=== PATIENT | female | born 1950 | race Caucasian/White ===

== ENCOUNTER 2016-08-21 05:56 | Inpatient (IN) | payer MEDICARE, OTHER ==
[~2016-08-21] VITALS: Ht 157.5 cm; Wt 61.7 kg
[2016-08-21] VITALS (20 sets, daily range): BP systolic 93–175; BP diastolic 52–102; PULSE 72–102; RESP 14–21; O2SAT 94–99
[~2016-08-21 05:56] MED LIST: ALBU5SOL4 IN; ALBU8.5H4 IH; CLOP75TA28 PO; FLUT12AE10 IH; INSU100C11 SUBQ; INSU100V7 SUBQ; LISI-567 PO; METF10002 PO; METO50TA3 PO; OMEG-38 PO; ROSU40TA PO; SALM50DI IH
[2016-08-21] MEDS ORDERED: Nitroglycerin 50,000 mcg/250 mL D5W Premix IV ONE ×2 (06:14→06:32)
[2016-08-21] MEDS ORDERED: MeTOProlol 1 mg/mL 5 mL Inj ONE (06:15)
[2016-08-21] MEDS ORDERED: Ondansetron 2 mg/mL 2 mL Inj ONE ×2 (06:15→06:56)
[2016-08-21] MEDS ORDERED: Nitroglycerin 2% 1 Gm Ointment TOPICAL ONE (06:15)
[2016-08-21] MEDS ORDERED: Heparin 5,000 Unit/mL Inj ONE (06:16)
--- NOTE | 2016-08-21 06:18 | ED.REPORT ---
HPI-Chest Pain 40 and Over Date of Service Aug 21, 2016 ED Provider: Lenny Lomeli MD Pt is a 65 year old female with a hx of DM and stents presenting to the ED complaining of 10/10 chest pain/pressure onset this morning around 0400. Denies nausea, SOB, diaphoresis, dysuria or bleeding. Denies previous similar symptoms. The pain is across the chest and radiates into the arms and is exacerbated by inspiration and relieved by sitting up. Pt takes Plavix, Metformin, Lisinopril, cholesterol medication, and Aspirin but has not taken any medications today. Nursing Notes Stated Complaint: CHEST PAIN Chief Complaint: Chest Pain Nursing Notes Reviewed: Yes ([employer] not reconciled) Allergies: Coded Allergies: No Known Allergies (Verified , 08/21/16) Scheduled Clopidogrel (Clopidogrel) 75 Mg Tablet 75 MG PO DAILY Fluticasone Propionate (Flovent HFA 220 mcg) 12 Gm Aer.w.adap 2 PUFFS IH BID Insulin Glargine (Lantus U100 Insulin Vial) 100 Unit/Ml Vial 120 UNIT SUBQ QPM- INSULIN Insulin Lispro (HumaLOG U100 Insulin Cartridge Refill) 100 Unit/1 Ml Cartridge 20-30 UNIT SUBQ TID-INSULIN Blood Sugar Lispro Correction <151 0 units 151-175 1 unit 176-200 2 units 201-225 3 units 226-250 4 units 251-275 5 units 276-300 6 units 301-325 7 units 326-350 8 units 351-375 9 units 376-400 10 units >400 12 units Check blood sugars before meals and at bedtime. Use correction factor only before meals. Lisinopril (Lisinopril) 20 Mg Tablet 20 MG PO BID Metformin (Metformin) 1,000 Mg Tablet 1,000 MG PO BIDWM Metoprolol Tartrate (Metoprolol Tartrate) 50 Mg Tablet 50 MG PO BID [place]-3/Dha/Epa/Fish Oil (Fish Oil 1,000 mg Softgel) 1 Each Capsule 2 CAP PO DAILY Rosuvastatin Calcium (Crestor) 40 Mg Tablet 40 MG PO HS Salmeterol Xinafoate (Serevent Diskus) 50 Mcg/Puff Inhaler 1 PUFF IH BID Scheduled PRN Albuterol HFA (Albuterol HFA) 8.5 Gm Hfa.aer.ad 2 PUFFS IH Q4 PRN PRN For Wheezing Albuterol Sulfate (Albuterol 5% Inh Soln) 5 Mg/1 Ml Solution 2.5 MG IN Q4 PRN PRN For Wheezing Mix in nebulizer reservoir with sodium chloride nebulizer solution. General Time Seen by MD: 06:05 Chief Complaint Chest pain Hx Obtained From: Patient Arrived By: Walk-in Sudden in Onset?: Yes Onset Occurred: 1 - 4 hours ago Symptom Duration: Since onset Location: : Chest left: Chest right Quality: Painful, Pressure Radiation: : Arm left: Arm right Severity: Current: Pain level 10 out of 10 Severity: Maximum: Severe Recent Healthcare: No recent doctor visit, No recent hospitalization Similar Sx Previous: No Risk Factors )( CAD Risk Stratification Diabetes mellitus Hyperlipidemia Known CAD Risk factors reviewed Past Medical History Past Medical History Notes: Last Admit - Chest pain March 2012, myocardial perfusion scan negative Past Medical History IDDM (adult onset), poorly controlled. 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 Female: Denies: Dysuria, Vaginal bleeding - abnl Physical Exam Initial Vital Signs Vital Signs (First) Date Time Temp Pulse Resp B/P Pulse Ox O2 Delivery O2 Flow Rate FiO2 08/21/16 06:00 36.5 80 18 175/92 94 Room Air Initial VS: Reviewed, Vital signs normal (moderate HYN) Head / Eyes: Atraumatic, Normocephalic, PERRL ENT: Mucous membranes moist, Conjunctiva normal, No scleral icterus Extremities: Vascular intact, Neuro intact, No swelling, No tenderness Skin: Warm, Dry, No cyanosis Neurologic: Alert, Oriented, Nonfocal Psychiatric: Mood/affect normal, Behavior normal, Normal thought content General/Constitutional: Awake, Alert Appearance / Presentation: Positive: Uncomfortable Clutching chest in severe discomfort. Not diaphoretic. Kind of thin and mildly cachectic. Respiratory / Chest: Atraumatic, Breath sounds NL, Breath sounds = bilat, No respiratory distress Not tachypnic. Cardiovascular: Regular rhythm, No murmurs Hypertensive. Abdomen: Soft, Non-tender, No guarding, No rebound, No distention Neck: No JVD Lower Extremity / Pelvis / MS: No edema Interpretation & Diagnostics Lab Results Interpretation Result Diagram: 08/21/16 0641 08/21/16 0641 Test 08/21/16 06:41 White Blood Count 8.6th/mm3 (3.8-10.1) Red Blood Count 4.87mil/mm3 (3.90-5.20) Hemoglobin 14.0g/dL (12.0-15.6) Hematocrit 40.6% (35.0-46.0) Mean Corpuscular Volume 83.4fL (81-100) Mean Corpuscular Hemoglobin 28.7pg (27.0-35.0) Mean Corpuscular Hemoglobin Concent 34.5% (32.0-37.0) Red Cell Distribution Width 13.9% (12.3-15.4) Platelet Count 200bil/L (150-400) Neutrophils (%) (Auto) 55.4% (40-74) Lymphocytes (%) (Auto) 32.5% (14-46) Monocytes (%) (Auto) 9.8% (4-12) Eosinophils (%) (Auto) 1.4% (0-5) Basophils (%) (Auto) 0.2% (0-3) Sodium Level 133mEq/L (134-144) Potassium Level 4.5mEq/L (3.5-5.2) Chloride Level 94mEq/L (97-108) Carbon Dioxide Level 23mmol/L (18-29) Blood Urea Nitrogen 22mg/dL (8-27) Creatinine 0.57mg/dL (0.57-1.00) Estimat Glomerular Filtration Rate 152mL/min (>59) Glucose Level 557mg/dL (60-99) Calcium Level 9.6mg/dL (8.5-10.1) Magnesium Level 2.0mg/dL (1.6-2.6) Total Bilirubin 0.4mg/dL (0.0-1.2) Aspartate Amino Transf (AST/SGOT) 19U/L (0-50) Alanine Aminotransferase (ALT/SGPT) 25U/L (0-32) Alkaline Phosphatase 178U/L (25-165) Troponin T 0.013ug/L (0.0-0.011) Total Protein 8.0g/dL (6.4-8.4) Albumin 3.9g/dL (3.4-5.0) Lab Results Interpretation: CBC normal CMP notable for hyperglycemia Troponin #1 marginally elevated ECG Interpretation ECG Interpretation: NSR @71, ST segment elevation inferiorly, reciprocal changes anteriorly consistent with inferior ST segment elevation GA, EKG changes are new compared with old EKG March 2012 Time: 06:12 Interpreted by: ED physician Abnormal T wave or ST segment: STEMI X-Ray Chest Interpretation Chest Xray Interpretation: No acute disease per my interpretation View: Portable Interpretation / Wet Read by: Wet read ED physician Re-Eval/Medical Decision Med Decision/Clinical Course This is a 65-year-old female with diabetes, high blood pressure, previous history of coronary disease and stenting in 2009 of the LAD who reports developing substernal chest discomfort with radiation of the right arm at approximately 4 AM this morning. She reports 10 out of 10 pressure-like discomfort. She denies diaphoresis nausea or vomiting, but has persistent symptoms. She is on aspirin and Plavix, but has not yet had either today. Her reports she continues to abstain from smoking. sHe arrives still having 10 out of 10 chest discomfort. She is hypertensive, and is clutching her chest and appears in severe discomfort. But otherwise she has a normal physical exam, no overt stigmata of heart failure. She has no JVD, no rails, no murmurs, no leg edema. She has no risk factors for to suggest pulmonary embolism. She has no contraindications to anticoagulation. Her EKG demonstrates an inferior ST segment elevation GA, new compared with previous EKG dated March 2012. The STEMI process was activated, and the case discussed with the design consultant Dr. Vazquez. Patient received aspirin, 600 mg of Plavix, morphine, heparin, a single dose of 25 mg by mouth metoprolol, and is improved on reevaluation. She is being taken to the Mobile Sales Assistant for further management The patient's glucose returned elevated while the patient was in the quality assurance/r&d lab technician and I called results over to them. Source of Hx: Old records Time of Eval: 06:22 Patient Status: Condition improved Re-Evaluation/Progress Note: Discussed plan for admission and consultation with Dr. Vazquez. Pt understands and agrees. Time of Eval: 06:40 Patient Status: Condition improved Re-Evaluation/Progress Note: Pt pain not decreased yet. BP 160/69. Time of Eval: 06:54 Patient Status: Condition improved Re-Evaluation/Progress Note: Pt being taken to quality assurance/r&d lab technician. Consultation : Referral / Consult Name: Panda Vazquez MD Consulted With: Cardiology Call Returned at: 06:17 Youth Care Professional: Will see patient Note: Requested quality assurance/r&d lab technician. Differential Diagnosis: Positive: Acute coronary syndrome, Acute myocardial infarct, Myocardial infarction, Negative: Gun shot wound chest, Pneumonia, Pneumothorax, Pulmonary edema, Pulmonary embolism, Stab wound chest Counseled Regarding: Diagnosis, Lab results, Need for follow-up, When/why to return to ED Discharge & Departure Primary Impression: STEMI (ST elevation myocardial infarction) Involved coronary artery: unspecified coronary artery Qualified Code: I21.3 - ST elevation (STEMI) myocardial infarction of unspecified site Additional Impression: Hyperglycemia Disposition: ADMITTED TO HOSPITAL Discharge Condition All VS Reviewed: Yes Condition: Improved Referrals: Ga Sullivan MD (PCP) Crit Care Except Billable Proc Time Spent: 30-74 minutes Services Performed: Patient management by me, Time spent at bedside, Reviewing test results, Reviewing imaging, Discussing patient care, Documentation in record Scribe Attestation Portions of this note were transcribed by Melissa Santoyo. I, Dr. Lomeli personally performed the history, physical exam and medical decision-making; I reviewed and confirmed the accuracy of the information in the transcribed note. Signed by: Parker Mcclure, 08/21/2016 at 0730. copies to: Ga Sullivan MD, Matthew F MD Aug 21, 2016 06:18 MELISSA SANTOYO Aug 21, 2016 06:23
[2016-08-21] MEDS ORDERED: Heparin 5,000 Unit/mL Inj IVPUSH ONE (06:20)
[2016-08-21] MEDS ORDERED: Heparin 25K Unit/500mL 0.45 NS 25,000 UNIT in IV Premix 1 EACH IV ONE (06:20)
[2016-08-21] MEDS ORDERED: Heparin 1,000 Units/500 mL NS Premix IV ONE (06:32)
[2016-08-21] MEDS ORDERED: Atropine 1 mg/10 mL (Code) Syringe ONE (06:32)
[2016-08-21] MEDS ORDERED: 0.9% Sodium Chloride 1,000 ML ONE (06:32)
[2016-08-21] MEDS ORDERED: Heparin 1,000 Unit/mL 10 mL Inj ONE ×2 (06:32→07:37)
[2016-08-21] MEDS ORDERED: Heparin 10,000 Unit/1,000 mL NS Premix IV ONE (06:33)
[2016-08-21] MEDS ORDERED: NitroPRUSSIDE 25,000 mCg/mL 2 mL Inj IV ONE (06:39)
[2016-08-21] MEDS ORDERED: 0.9% Sodium Chloride 250 ML ONE (06:39)
[2016-08-21 06:47] LABS: BASOPHILS % (AUTO) 0.2 % (0-3); EOSINOPHILS % (AUTO) 1.4 % (0-5); MONOCYTES % (AUTO) 9.8 % (4-12); Mean Corpuscular Hemoglobin 28.7 pg (27.0-35.0); Mean Corpuscular Volume 83.4 fL (81-100); NEUTROPHILS % (AUTO) 55.4 % (40-74); Platelet Count 200 bil/L (150-400)
[2016-08-21 07:08] LABS: TROPONIN T 0.013 ug/L (0.0-0.011)
[2016-08-21] MEDS ORDERED: fentaNYL-PF 50 mCg/mL 2 mL Inj ONE (07:23)
[2016-08-21] MEDS ORDERED: Senna-Docusate 8.6-50 mg Tablet PO PRN (09:10)
[2016-08-21] MEDS ORDERED: Alum-Mag Hydrox-Simeth 30 mL Suspension PO PRN (09:10)
[2016-08-21] MEDS ORDERED: Polyethylene Glycol (PEG) 17 Gm Powder PO PRN (09:10)
[2016-08-21] MEDS ORDERED: Ondansetron 2 mg/mL 2 mL Inj IVPUSH PRN (09:10)
[2016-08-21] MEDS ORDERED: Albuterol HFA 60 Puff 8 Gm Inhaler INHALATION PRN (09:20)
--- NOTE | 2016-08-21 09:22 | DRSVH ---
PROCEDURE: X-RAY CHEST ONE VIEW, PORTABLE ([id number]) INDICATIONS: CP TECHNIQUE: One view of the chest was acquired. COMPARISON: [facility], , CHEST 1VW (PORTABLE), 04/13/2012, 12:38. FINDINGS: Surgical changes and devices: None. Lungs and pleura: No pleural effusions or pneumothorax. Lungs are clear. Mediastinum: Mediastinal contours appear normal. Heart size is normal. Bones and chest wall: No suspicious bony lesions. Overlying soft tissues appear unremarkable. IMPRESSION: No acute cardiopulmonary disease. Dictated by: Dank TIDWELL Interpreted: Nikko Ramirez MD on 08/21/2016 at 9:21 Transcribed by: HERNANDO on 08/21/2016 at 9:21 Approved by: Nikko Ramirez M.D. on 08/21/2016 at 9:48
[2016-08-21] MEDS ORDERED: Albuterol 2.5 mg/3 mL Inhalation Solution NEB PRN (09:35)
--- NOTE | 2016-08-21 10:00 | PCM.CHPCAR ---
Consult Subjective Date of service Aug 21, 2016 Date of admit Aug 21, 2016 at 06:56 Provider Requesting Consult Requesting Provider: Lenny Lomeli MD Primary Care Physician Primary Care Physician: Ga Sullivan MD Chief Complaint Chest pain History of Present Illness This is a 65-year-old female with history of diabetes and multiple stents with history of multiple myocardial infarctions. The patient started having significant and typical chest pressure was 10 out of 10 earlier this morning around 4:00. She denied any nausea, shortness of breath, PND, or orthopnea. The pain radiated to both of her arms and was exacerbated by inspiration and relieved by sitting up. EKG showed inferior STEMI and the patient was taken to the catheterization laboratory immediately and was found to have significant left main disease and diffuse in-stent restenosis of her LAD stents. Her distal RCA was totally occluded. Balloon angioplasty was performed without stenting in case the patient was considered to be a candidate for coronary artery bypass grafting because of her left main disease. She is resting comfortably in CCU at this time. She denies any chest pain. Dr. Vazquez performed heart catheterization and is discussing with the on-call cardiothoracic surgeon at [facility]. The patient's past history of CA in March 2007 and September 2009 was treated by angioplasty and stenting of the LAD. As mentioned she has had multiple stents with pretty much stents throughout her proximal mid LAD. Patient has a history of drug addiction but no use since 1989. History depression, asthma, smoking. Review of Systems Review of Systems Otherwise the rest of the 12 point review of symptoms is negative. PMH Past Medical History IDDM (adult onset), poorly controlled. neuropathy Heart disease (CA in 2007, 2009) Asthma (Intubations x2 for asthma) Coronary artery disease Bedside Blood Glucose: 494 Scheduled Clopidogrel (Clopidogrel) 75 Mg Tablet 75 MG PO DAILY (Reported) Fluticasone Propionate (Flovent HFA 220 mcg) 12 Gm Aer.w.adap 2 PUFFS IH BID ( Reported) Insulin Glargine (Lantus U100 Insulin Vial) 100 Unit/Ml Vial 120 UNIT SUBQ QPM- INSULIN (Reported) Insulin Lispro (HumaLOG U100 Insulin Cartridge Refill) 100 Unit/1 Ml Cartridge 20-30 UNIT SUBQ TID-INSULIN (Reported) Blood Sugar Lispro Correction <151 0 units 151-175 1 unit 176-200 2 units 201-225 3 units 226-250 4 units 251-275 5 units 276-300 6 units 301-325 7 units 326-350 8 units 351-375 9 units 376-400 10 units >400 12 units Check blood sugars before meals and at bedtime. Use correction factor only before meals. Lisinopril (Lisinopril) 20 Mg Tablet 20 MG PO BID (Reported) Metformin (Metformin) 1,000 Mg Tablet 1,000 MG PO BIDWM (Reported) Metoprolol Tartrate (Metoprolol Tartrate) 50 Mg Tablet 50 MG PO BID (Reported) Oliver-3/Dha/Epa/Fish Oil (Fish Oil 1,000 mg Softgel) 1 Each Capsule 2 CAP PO DAILY (Reported) Rosuvastatin Calcium (Crestor) 40 Mg Tablet 40 MG PO HS (Reported) Salmeterol Xinafoate (Serevent Diskus) 50 Mcg/Puff Inhaler 1 PUFF IH BID ( Reported) Scheduled PRN Albuterol HFA (Albuterol HFA) 8.5 Gm Hfa.aer.ad 2 PUFFS IH Q4 PRN PRN For Wheezing (Reported) Albuterol Sulfate (Albuterol 5% Inh Soln) 5 Mg/1 Ml Solution 2.5 MG IN Q4 PRN PRN For Wheezing (Reported) Mix in nebulizer reservoir with sodium chloride nebulizer solution. Current Inpatient Medications Current Medications Morphine Sulfate UP TO 10 mg IV in a 4 h... Q15MIN PRN IVPUSH Last administered on 08/21/16t 06:29; Admin Dose 4 MG; Start 08/21/16 at 06:20; Stop at 06:21 Ondansetron HCl 4 to 8 mg Q4H PRN IVPUSH; Start 08/21/16 at 09:10 Acetaminophen 975 mg Q6H PRN PO; Start 08/21/16 at 09:10 Senna 2 tablet BID PRN PO; Start 08/21/16 at 09:10 Al Hydrox/Mg Hydrox/Simethicone 30 ml Q6 PRN PO; Start 08/21/16 at 09:10 Polyethylene Glycol 17 gm DAILY PRN PO; Start 08/21/16 at 09:10 Enoxaparin Sodium 40 mg DAILY SUBQ; Start 08/22/16 at 08:30 Albuterol 1 puff Q4 PRN INHALATION; Start 08/21/16 at 09:20; Status UNV Clopidogrel Bisulfate 75 mg DAILY PO; Start 08/22/16 at 08:30 Lisinopril 20 mg BID PO; Start 08/21/16 at 20:30 Metoprolol Tartrate 50 mg BID PO; Start 08/21/16 at 09:20 Salmeterol Xinafoate 1 puff BID INHALATION; Start 08/21/16 at 20:30 Fluticasone Propionate 2 puff BID INHALATION; Start 08/21/16 at 20:30 Rosuvastatin Calcium 40 mg HS PO; Start 08/21/16 at 21:00 Insulin Human Regular * Medium Dose Insu... Q6 SUBQ; Start 08/21/16 at 14:30 Albuterol 2.5 mg Q4H PRN NEB; Start 08/21/16 at 09:35 Allergies: Coded Allergies: No Known Allergies (Verified , 08/21/16) Family History Family History Family history of myocardial infarctions. Social History Hx Alcohol Use: NoHx Substance Use: NoHx Tobacco Use: Yes Smoking Status: Former Smoker Exam Vital Signs Vital Sign - Last Date Time Temp Pulse Resp B/P Pulse Ox O2 Delivery O2 Flow Rate FiO2 08/21/16 09:15 85 17 143/78 08/21/16 08:28 37.1 99 Nasal Cannula 2.00 General: Pleasant Cooperative Skin: Warm & dry to touch Head: Normocephalic Eye: EOMS intact Chest: Clear auscultation w/o rales/wheeze Cardiac: Normal non-displaced apical impulse Regular rhythm Pulses: Pulses full/equal all extremities Abdomen: Soft, non-distended, non-tender Extremities: Warm w/o deformities,erythema noted Neurological: Alert & oriented No gross motor or sensory deficits Psychological: Affect & interaction appropriate Lab and Diagnostics Labs CBC Test 08/21/16 06:41 White Blood Count 8.6th/mm3 (3.8-10.1) Red Blood Count 4.87mil/mm3 (3.90-5.20) Hemoglobin 14.0g/dL (12.0-15.6) Hematocrit 40.6% (35.0-46.0) Mean Corpuscular Volume 83.4fL (81-100) Mean Corpuscular Hemoglobin 28.7pg (27.0-35.0) Mean Corpuscular Hemoglobin Concent 34.5% (32.0-37.0) Red Cell Distribution Width 13.9% (12.3-15.4) Platelet Count 200bil/L (150-400) Neutrophils (%) (Auto) 55.4% (40-74) Lymphocytes (%) (Auto) 32.5% (14-46) Monocytes (%) (Auto) 9.8% (4-12) Eosinophils (%) (Auto) 1.4% (0-5) Basophils (%) (Auto) 0.2% (0-3) CMP Test 08/21/16 06:41 Sodium Level 133mEq/L Potassium Level 4.5mEq/L Chloride Level 94mEq/L Carbon Dioxide Level 23mmol/L Blood Urea Nitrogen 22mg/dL Creatinine 0.57mg/dL Estimat Glomerular Filtration Rate 152mL/min Glucose Level 557mg/dL Calcium Level 9.6mg/dL Magnesium Level 2.0mg/dL Total Bilirubin 0.4mg/dL Aspartate Amino Transf (AST/SGOT) 19U/L Alanine Aminotransferase (ALT/SGPT) 25U/L Alkaline Phosphatase 178U/L Troponin T 0.013ug/L Total Protein 8.0g/dL Albumin 3.9g/dL Result Diagram: 08/21/1664008/21/1641 Assessment & Plan Problems: (1) STEMI (ST elevation myocardial infarction) Qualifiers: Involved coronary artery: unspecified coronary artery Qualified Code: I21.3 - ST elevation (STEMI) myocardial infarction of unspecified site Plan: Inferior STEMI. Plain balloon angioplasty was performed without stenting. Currently Dr. Vazquez our on-call interventionalist is currently discussing with the on-call cardiothoracic surgeon to see if she has a candidate for bypass surgery. She has diffuse disease within multiple stents in the LAD and the only target site that I see would be the very distal LAD. The diagonal is also bypassable as well as a small marginal artery and the distal RCA. The only other option is to consider left main stenting which is unprotected. Dr. Vazquez will let us know soon as possible if and when the patient will proceed with coronary stenting versus coronary artery bypass grafting. After she is completed her post cath recovery, then we will start her back on intravenous heparin. I have ordered clopidogrel for tomorrow but we may consider holding this depending on the decision for coronary intervention. Status: Acute ICD Code: I21.3 (2) Hyperglycemia Plan: I started the patient on moderate insulin protocol. Status: Acute ICD Code: R73.9 (3) Diabetes Qualifiers: Diabetes mellitus type: type 2 Diabetes mellitus complication status: with neurologic complications Diabetes mellitus complication detail: with polyneuropathy Diabetes mellitus intermodal customer service insulin use: with intermodal customer service use Qualified Code: E11.42 - Type 2 diabetes mellitus with diabetic polyneuropathy Status: Chronic ICD Code: E11.9 Resuscitation Status: CPR: Attempt Resuscitation Time spent 60 minutes Kenneth Herrera MD Aug 21, 2016 10:00
[2016-08-21] MEDS ORDERED: Insulin Human REGular Inj 100 UNIT in 0.9% Sodium Chloride-Pha MIX 100 ML IV SCH (10:12)
--- NOTE | 2016-08-21 10:37 | PCM.HPMED ---
Subjective Date of Service Aug 21, 2016 Primary Provider: Admitting Physician: Panda Vazquez MD Primary Care Physician: Ga Sullivan MD Attending Physician: Panda Vazquez MD Chief Complaint: Chest pain Allergies Coded Allergies: No Known Allergies (Verified , 08/21/16) PMH Social History Hx Alcohol Use: No Hx Substance Use: No Hx Tobacco Use: Yes Smoking Status: Former Smoker Exam Vital Signs Vital Sign - Last Date Time Temp Pulse Resp B/P Pulse Ox O2 Delivery O2 Flow Rate FiO2 08/21/16 09:15 85 17 143/78 08/21/16 08:28 37.1 99 Nasal Cannula 2.00 Lab and Diagnostics Result Diagram: 08/21/16 0641 08/21/16 0641 Assessment & Plan Diabetes type 2; present o admission; ongoing -Diabetic for 8 year on Metformin and 40 units Humulin N BID; normal BG < 180 -Current BG > 550 -Starting patient on Insulin drip -Once BG < 180 will switch to Lantus 40mg HS and low correctional -NPO due to possible transfer for CABG; will follow-up with cardio Inferior STEMI; present on admission; ongoing -Presented with substernal typical CP with cath identifying complete occlusion of the RCA and near occlusive of the LAD among others; No stents placed -Angioplasty performed and currently Dr. Vazquez is discussing transfer for CABG -Continue ASA/Plavix/Nirto as previously ordered -Continue atorvastatin Resuscitation Status: CPR: Attempt Resuscitation Mio Stein DO Aug 21, 2016 10:37 Assessment & Plan Diabetes type 2; present o admission; ongoing -Diabetic for 8 year on Metformin and 40 units Humulin N BID; normal BG < 180 -Current BG > 550 -Starting patient on Insulin drip -Once BG < 180 will switch to Lantus 40mg HS and low correctional -NPO due to possible transfer for CABG; will follow-up with cardio Inferior STEMI; present on admission; ongoing -Presented with substernal typical CP with cath identifying complete occlusion of the RCA and near occlusive of the LAD among others; No stents placed -Angioplasty performed and currently Dr. Vazquez is discussing transfer for CABG -Continue ASA/Plavix/Nirto as previously ordered -Continue atorvastatin Resuscitation Status: CPR: Attempt Resuscitation Mio Stein DO Aug 21, 2016 10:37
--- NOTE | 2016-08-21 10:50 | PCM.HPMED ---
Subjective Date of Service Aug 21, 2016 Primary Provider: Admitting Physician: Panda Vazquez MD Primary Care Physician: Ga Sullivan MD Attending Physician: Panda Vazquez MD Chief Complaint: Chest pain History of Present Illness: From Dr. Herrera's consult/admit note: 65 year old female with hx of DM2 on insulin and metformin and hx of [place] with multiple stent placed in 2009 who presented to the ED with 10/10, radiating, substernal chest pressure with difficulty breathing that began at 0400 this morning after patient woke up to prepare for her day. The pain radiated to both her extremities and to the back. Patient endorses lethargy and cloudy mentation but otherwise denies SOB, nausea, vomiting, or tearing chest pain. She was brought to the ED by EMS where inferior STEMI was identified and patient was taken to the refuse laborer with Dr. Vazquez. As reported by DrMarci On evaluation the patient had re-stenosis of her previous LAD stent with significant left main disease, as well as total occlusion of her distal RCA. Balloon angioplasty was performed and WITHOUT STENTING. Dr. Vazquez is disucsisng transfer to [place] for recommended CABG. Pt's diabetes was diagnosed 8 years ago and is currently on Metformin and Humulin N 40 units BID. Patient states her BG is usually around 150-180. Pt has not eaten today. Blood glucose this morning is > 550. There are significant differences between her home med list we have here and what she states she takes. Review of Systems: Complete review of systems performed; pertinent positives and negatives per HPI ; all other systems reviewed and are negative. Allergies Coded Allergies: No Known Allergies (Verified , 08/21/16) Home Medications Rosuvastatin 40mg daily Humulin N 40units BID Metformin 1000mg daily Metoprolol tartrate 50mg BID Salmeterol 50mcg/puff; 1 puff BID Stopped taking Plavix 3 weeks ago PMH IDDM (adult onset), poorly controlled. neuropathy Heart disease ([place] in 2007, 2009) Asthma (Intubations x2 for asthma) Coronary artery disease Surgical History Multiple stents placed Family History Mother of heart disease Father of skin cancer Social History Hx Alcohol Use: No Hx Substance Use: No Hx Tobacco Use: Yes Smoking Status: Former Smoker Exam Vital Signs Vital Sign - Last Date Time Temp Pulse Resp B/P Pulse Ox O2 Delivery O2 Flow Rate FiO2 08/21/16 09:15 85 17 143/78 08/21/16 08:28 37.1 99 Nasal Cannula 2.00 Exam gen: AOx3; NAD; laying flat HEENT: PERRLA, EOMI, membranes moist Cardio: RRR Resp: CTA with crackles (difficult to auscultate due to patient needing to remain flat) Abd: Benign; +bs; non-tender; incision site clean and bandages dry Ext: no edema; pulses intact psych: appropriate mood and affect neuro: sensation intact grossly Lab and Diagnostics Result Diagram: 08/21/1664008/21/16640 X-Rays, CTs and MRIs CXR IMPRESSION: No acute cardiopulmonary disease. Dictated by: Dank TIDWELL Interpreted: Nikko Ramirez MD on 08/21/2016 at 9: 21 Assessment & Plan 65 year old female with hx of [place] and DM2 on insulin presented ot ED with substernal CP and inferior STEMI with significant and advance CAD on catheterization. Per Dr. Herrera's note, Dr. Vazquez is working on transfer for CABG. Diabetes type 2; present o admission; ongoing -Diabetic for 8 year on Metformin and 40 units Humulin N BID; normal BG < 180 -Current BG > 550 -Starting patient on Insulin drip -Once BG < 180 will switch to Lantus 40mg HS and low correctional -NPO due to possible transfer for CABG; will follow-up with cardio Inferior STEMI; present on admission; ongoing -Presented with substernal typical CP with cath identifying complete occlusion of the RCA and near occlusive of the LAD among others; No stents placed -Angioplasty performed and currently Dr. Vazquez is discussing transfer for CABG -Continue ASA/Plavix/Nirto as previously ordered -Continue Rosuvastatin Asthma, chronic; present on admission; ongoing -Home inhalers continued by cardiology -Can continue home fluticasone Neuropathy; present on admisison, ongoing -No complaint of neuropathy at this point Disposition: Pt admitted to ICU following PCI with balloon angioplasty. Expected LOS is likely greater than 2 midnights pending transfer for recommended for CABG. Pain Evaluation: Adequate Pain Control Resuscitation Status: CPR: Attempt Resuscitation Time spent 60 minutes Attending Statement The patient was seen and examined together with Dr. Stein on 08/21/16 and I have added additional information to the note above. Mio Stein DO Aug 21, 2016 10:50 Debbi Hurt Aug 21, 2016 18:12
--- NOTE | 2016-08-21 11:09 | PCM.ADCARE ---
Mio Stein DO 08/21/16 1109: Advance Care Planning Note Purpose of Encounter: Establish patient wishes for end of life care Parties in Attendance: Patient Dr Mio Hurt Decisional Capacity: Able to make her own decisions Subjective: 65 year old female with history of multiple NM's and DM2, as well as asthma who underwent additional coronary intervention this AM. 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 She states that her ventilator preference is < 5 days if she is not recovering. Her son Ga ( ) in [place] is her DPOA. Objective: Exam was unremarkable Goals of Care Determinations: Full code; no prolonged mechanical measures Plan: Patient will be full code. CODE STATUS: Full code Time Spent Adv.Care Planning: Greater than 16 minutes Adv. Care Plan Documenation: No POLST was signed. Pt verbally explained her wishes to both Dr. Stein and Debbi Yang DO 08/21/16 1552: Advance Care Planning Note Objective: Diagnosis: Diabetes Multiple NM's CAD Adv. Care Plan Documenation: The patient was seen and examined together with Dr. Stein on 08/21/16 and I have added additional information to the note above. Mio Stein DO Aug 21, 2016 11:09 Debbi Hurt DO Aug 21, 2016 15:52
--- NOTE | 2016-08-21 13:17 | DRSVH ---
[facility] [address] [place] [address] Echocardiogram Report Name: CINDI SLAUGHTER LStudy Date: 08/21/2016 Height: 62 in Hospital Exam Location: [facility] Weight: 129 lb Gender: Other BSA: 1.6 m2 : 1950 Age: 65 yrs BP: 143/78 mmHg Reason For Study: INFERIOR STEMI Ordering Physician: Performed By: Fidel Gomez Interpretation Summary There is moderate concentric left ventricular hypertrophy. Left ventricular systolic function is normal. The ejection fraction is estimated to be 60-65%. LVEF has slightly There is basal inferoseptal wall hypokinesis. There is basal inferior wall hypokinesis. LV wall motion abnormalities are new since 2010 study. The right ventricle is normal in size and function. Pulmonary artery pressures cannot be estimated because of the lack of a measurable TR jet velocity. Both atria are normal in size. There is mild mitral regurgitation. There is no other significant valvular heart disease. The aortic root is normal size. Procedure: A two-dimensional transthoracic echocardiogram with color flow and Doppler was performed. The study quality was technically adequate. Comparison is made with the echocardiogram of 09/14/09. The patient was in normal sinus rhythm during the exam. Left Ventricle: The left ventricle is normal in size. There is moderate concentric left ventricular hypertrophy. Left ventricular systolic function is normal. The ejection fraction is estimated to be 60-65%. There is basal inferoseptal wall hypokinesis. There is basal inferior wall hypokinesis. Right Ventricle: The right ventricle is normal in size and function. Atria: Both atria are normal in size. The interatrial septum is intact with no evidence for an atrial septal defect. Mitral Valve: There is mild mitral annular calcification. There is mild mitral regurgitation. Aortic Valve: The aortic valve is trileaflet. The aortic valve is slightly calcified. The aortic valve opens well. No aortic regurgitation is present. Tricuspid Valve: The tricuspid valve is normal in structure and function. There is a trace or physiologic amount of tricuspid regurgitation. Pulmonary artery pressures cannot be estimated because of the lack of a measurable TR jet velocity. Pulmonic Valve: The pulmonic valve is not well visualized. There is trace pulmonic regurgitation. There is no other significant valvular heart disease. Great Vessels: The aortic root is normal size. The dimensions of the ascending aorta are normal. The pulmonary artery is normal size. The IVC is of normal diameter and collapses greater than 50% with a sniff. This suggests a low right atrial pressure of 3 mm Hg. Pericardium/ Pleura There is no pericardial effusion. There is no pleural effusion. MMode/2D Measurements & Calculations LVIDd: 2.8 cm LA dimension: 3.7 cm RA long axis Ao root diam LVIDs: 1.5 cm FS: 46.4 % LA A2 area: 13.3 cm RA area Aortic Jxn: 2.4 cm EPSS: 0.19 cm LA A4 area: 15.0 cm asc Aorta Diam IVSd: 1.5 cm LA length (vol) : 10.5 cm LVPWd: 1.5 cm RA vol Ao Arch Diam (Prox LA vol: 35.1 ml : 22.0 ml Trans): 2.4 cm LA vol index RA : 13.9 mm2 IVC diam: 1.1 cm LV boss. diameter/BSA LV sys. diameter/BSA (cm/m^2): 1.8 (cm/m^2): 0.95 Doppler Measurements & Calculations Ao V2 max MV E max jose MV E/A: 0.67 PA V2 max: 101.2 cm/sec : 123.9 cm/sec : 69.7 cm/sec Med Peak E' Jose PA mean P.9 mmHg Ao max PG MV A max jose PA Accel Time: 0.11 sec : 6.1 mmHg : 103.3 cm/sec E/E' med: 22.0 Ao mean PG Pulm A Revs Dur : 3.6 mmHg MV A dur: 0.12 sec MV dec time Ao V2 mean PA V2 mean Pulm A Revs Dur - MV A : 0.29 sec : 89.9 cm/sec : 64.2 cm/sec Dur: -0.02 msec Ao V2 VTI: 24.3 cmPA pr(Accel) : 29.3 mmHg Reading Physician:SUGAR
[2016-08-21] MEDS ORDERED: Glucose 40% Oral Gel 15 Gm Tube PO PRN (14:25)
[2016-08-21] MEDS ORDERED: Insulin Human REGular 300 Unit/3 mL Inj SUBQ SCH (14:30)
[2016-08-21] MEDS ORDERED: ALBU8.5H2 INHALATION (14:43)
[2016-08-21] MEDS ORDERED: METF1000 PO (14:43)
[2016-08-21] MEDS ORDERED: ASPI-973 PO (14:43)
[2016-08-21] MEDS ORDERED: ALBU0.63 INHALATION (14:45)
[2016-08-21] MEDS ORDERED: CHOL5000 PO (14:45)
[2016-08-21] MEDS ORDERED: NITR0.4T SL (14:45)
[2016-08-21] MEDS: Insulin LISPRO 300 Unit/3 mL Inj SUBQ SCH ×2 (16:28→22:14)
[2016-08-21] MEDS: Fluticasone 250 mCg Inhaler INHALATION SCH ×2 (20:30→22:06)
[2016-08-21] MEDS: Salmeterol 50 mcg/Puff 28 Inhalation Diskus INHALATION SCH ×2 (20:30→22:05)
[2016-08-21] MEDS ORDERED: Insulin GLARgine 100 Unit/mL Syringe SUBQ SCH (21:00)
[2016-08-22] VITALS (8 sets, daily range): BP systolic 100–134; BP diastolic 56–82; PULSE 69–91; RESP 14–20; O2SAT 89–97
[2016-08-22 03:16] LABS: BASOPHILS % (AUTO) 0.1 % (0-3); EOSINOPHILS % (AUTO) 1.3 % (0-5); MONOCYTES % (AUTO) 8.4 % (4-12); Mean Corpuscular Hemoglobin 28.5 pg (27.0-35.0); Mean Corpuscular Volume 85.5 fL (81-100); NEUTROPHILS % (AUTO) 59.2 % (40-74); Platelet Count 190 bil/L (150-400)
[2016-08-22] MEDS: Fluticasone 250 mCg Inhaler INHALATION SCH (07:24)
[2016-08-22] MEDS: Salmeterol 50 mcg/Puff 28 Inhalation Diskus INHALATION SCH (07:25)
[2016-08-22] MEDS: Insulin LISPRO 300 Unit/3 mL Inj SUBQ SCH ×4 (07:46→21:03)
--- NOTE | 2016-08-22 09:57 | PCM.PNCARD ---
Subjective Date of service Aug 22, 2016 Chief Complaint Chest pain History of Present Illness This is a 65-year-old female with history of diabetes and multiple stents with history of multiple myocardial infarctions. The patient started having significant and typical chest pressure was 10 out of 10 yesterday morning around 4:00. She denied any nausea, shortness of breath, PND, or orthopnea. The pain radiated to both of her arms and was exacerbated by inspiration and relieved by sitting up. EKG showed inferior STEMI and the patient was taken to the catheterization laboratory immediately and was found to have significant left main disease and diffuse in-stent restenosis of her LAD stents. Her distal RCA was totally occluded. Balloon angioplasty was performed without stenting in case the patient was considered to be a candidate for coronary artery bypass grafting because of her left main disease. She is resting comfortably in CCU at this time. She denies any chest pain. She has actually ambulated without any chest pain as well. Her echocardiogram yesterday showed preserved LVEF and hypokinesis along the basal inferoseptal and basal inferior wall. There were no significant valvular heart disease. Dr. Vazquez discussed with the on-call surgeon at [facility] and it was deemed that she is not a great surgical candidate due to her coronary anatomy. The tentative plan is to transfer her down to [facility] on Wednesday and schedule high risk left main PCI and surgical backup. The patient's past history of CO in March 2007 and September 2009 was treated by angioplasty and stenting of the LAD. As mentioned she has had multiple stents with pretty much stents throughout her proximal mid LAD. Patient has a history of drug addiction but no use since 1989. History depression, asthma, smoking but quit smoking about 5 years ago. Constitutional: Denies: Fever, Sweats, Weakness ENT: Denies: Ear Pain Cardiovascular: Denies: Chest Pain, Irregular Heart Rate, Rapid Heart Rate, SOB while laying flat Respiratory: Denies: Cough, SOB with Exertion, Wake up SOB Gastrointestinal: Denies: Abdominal Pain, Black tarry stools, Nausea, Vomiting Genitourinary: Denies: Hematuria Musculoskeletal: Denies: Back Pain, Shoulder Pain Skin: Reports: Bruising, Denies: Lesions, Rash Neurological: Denies: Change in LOC, Confusion, Localized Weakness Endocrine: Reports: Blood Glucose Review Exam Vital Signs Vital Sign - Last Date Time Temp Pulse Resp B/P Pulse Ox O2 Delivery O2 Flow Rate FiO2 6/10/17 07:29 37.5 76 16 105/58 97 Nasal Cannula 1.00 Intake and Output 08/21/16 08/21/16 08/22/16 Cumulative From/Thru 15:00 23:00 07:00 08/21/16 06:00 - 08/22/16 05:06 Intake Total 1058 ml 893 ml 1951 ml Output Total 950 ml 450 ml 1400 ml Balance 108 ml 443 ml 551 ml Intake Oral 300 ml 440 ml 740 ml IV Total 758 ml 453 ml 1211 ml Output Urine Total 950 ml 450 ml 1400 ml # Voids 2 2 # Bowel Movements 0 0 General: Pleasant Cooperative Skin: Warm & dry to touch Head: Normocephalic Eye: EOMS intact Ears, Nose & Throat: Ears no gross abnormalities Nose no gross abnormalities Neck: No JVD Chest: Clear auscultation w/o rales/wheeze Cardiac: Normal non-displaced apical impulse Regular rhythm Normal S1 and S2 No S3 or S4 No murmurs Pulses: Pulses full/equal all extremities Abdomen: Soft, non-distended, non-tender Extremities: Warm w/o deformities,erythema noted Neurological: Alert & oriented No gross motor or sensory deficits Psychological: Affect & interaction appropriate Memory grossly intact Lab and Diagnostics Labs CBC Test 08/22/16 03:10 White Blood Count 8.6th/mm3 (3.8-10.1) Red Blood Count 4.14mil/mm3 (3.90-5.20) Hemoglobin 11.8g/dL (12.0-15.6) Hematocrit 35.4% (35.0-46.0) Mean Corpuscular Volume 85.5fL (81-100) Mean Corpuscular Hemoglobin 28.5pg (27.0-35.0) Mean Corpuscular Hemoglobin Concent 33.3% (32.0-37.0) Red Cell Distribution Width 14.1% (12.3-15.4) Platelet Count 190bil/L (150-400) Neutrophils (%) (Auto) 59.2% (40-74) Lymphocytes (%) (Auto) 30.7% (14-46) Monocytes (%) (Auto) 8.4% (4-12) Eosinophils (%) (Auto) 1.3% (0-5) Basophils (%) (Auto) 0.1% (0-3) CMP Test 08/21/16 06:41 08/22/16 03:10 Hemoglobin A1c 12.6% Troponin T 0.013ug/L Prealbumin 22mg/dL Sodium Level 138mEq/L Potassium Level 4.0mEq/L Chloride Level 103mEq/L Carbon Dioxide Level 22mmol/L Blood Urea Nitrogen 15mg/dL Creatinine 0.51mg/dL Estimat Glomerular Filtration Rate 173mL/min Glucose Level 234mg/dL Calcium Level 10.4mg/dL Magnesium Level 1.8mg/dL Total Bilirubin 0.3mg/dL Aspartate Amino Transf (AST/SGOT) 60U/L Alanine Aminotransferase (ALT/SGPT) 19U/L Alkaline Phosphatase 123U/L Total Protein 6.1g/dL Albumin 3.2g/dL Result Diagram: 08/22/1630908/22/16309 Additional Diagnostics: Echocardiogram Report Name: CINDI SLAUGHTER LStudy Date: 08/21/2016 Height: 62 in Hospital Exam Location: [facility] Weight: 129 lb Gender: Other BSA: 1.6 m2 : 1950 Age: 65 yrs BP: 143/78 mmHg Reason For Study: INFERIOR STEMI Ordering Physician: Performed By: Fidel Gomez Interpretation Summary There is moderate concentric left ventricular hypertrophy. Left ventricular systolic function is normal. The ejection fraction is estimated to be 60-65%. LVEF has slightly There is basal inferoseptal wall hypokinesis. There is basal inferior wall hypokinesis. LV wall motion abnormalities are new since 2010 study. The right ventricle is normal in size and function. Pulmonary artery pressures cannot be estimated because of the lack of a measurable TR jet velocity. Both atria are normal in size. There is mild mitral regurgitation. There is no other significant valvular heart disease. The aortic root is normal size. Procedure: A two-dimensional transthoracic echocardiogram with color flow and Doppler was performed. The study quality was technically adequate. Comparison is made with the echocardiogram of 09/14/09. The patient was in normal sinus rhythm during the exam. Left Ventricle: The left ventricle is normal in size. There is moderate concentric left ventricular hypertrophy. Left ventricular systolic function is normal. The ejection fraction is estimated to be 60-65%. There is basal inferoseptal wall hypokinesis. There is basal inferior wall hypokinesis. Right Ventricle: The right ventricle is normal in size and function. Atria: Both atria are normal in size. The interatrial septum is intact with no evidence for an atrial septal defect. Mitral Valve: There is mild mitral annular calcification. There is mild mitral regurgitation. Aortic Valve: The aortic valve is trileaflet. The aortic valve is slightly calcified. The aortic valve opens well. No aortic regurgitation is present. Tricuspid Valve: The tricuspid valve is normal in structure and function. There is a trace or physiologic amount of tricuspid regurgitation. Pulmonary artery pressures cannot be estimated because of the lack of a measurable TR jet velocity. Pulmonic Valve: The pulmonic valve is not well visualized. There is trace pulmonic regurgitation. There is no other significant valvular heart disease. Great Vessels: The aortic root is normal size. The dimensions of the ascending aorta are normal. The pulmonary artery is normal size. The IVC is of normal diameter and collapses greater than 50% with a sniff. This suggests a low right atrial pressure of 3 mm Hg. Pericardium/ Pleura There is no pericardial effusion. There is no pleural effusion. MMode/2D Measurements & Calculations LVIDd: 2.8 cm LA dimension: 3.7 cm RA long axis Ao root diam LVIDs: 1.5 cm FS: 46.4 % LA A2 area: 13.3 cm RA area Aortic Jxn: 2.4 cm EPSS: 0.19 cm LA A4 area: 15.0 cm asc Aorta Diam IVSd: 1.5 cm LA length (vol) : 10.5 cm LVPWd: 1.5 cm RA vol Ao Arch Diam (Prox LA vol: 35.1 ml : 22.0 ml Trans): 2.4 cm LA vol index RA : 13.9 mm2 IVC diam: 1.1 cm LV boss. diameter/BSA LV sys. diameter/BSA (cm/m^2): 1.8 (cm/m^2): 0.95 Doppler Measurements & Calculations Ao V2 max MV E max jose MV E/A: 0.67 PA V2 max: 101.2 cm/sec : 123.9 cm/sec : 69.7 cm/sec Med Peak E' Jose PA mean P.9 mmHg Ao max PG MV A max jose PA Accel Time: 0.11 sec : 6.1 mmHg : 103.3 cm/sec E/E' med: 22.0 Ao mean PG Pulm A Revs Dur : 3.6 mmHg MV A dur: 0.12 sec MV dec time Ao V2 mean PA V2 mean Pulm A Revs Dur - MV A : 0.29 sec : 89.9 cm/sec : 64.2 cm/sec Dur: -0.02 msec Ao V2 VTI: 24.3 cmPA pr(Accel) : 29.3 mmHg Reading Physician:PM Assessment & Plan Problems: (1) STEMI (ST elevation myocardial infarction) Qualifiers: Involved coronary artery: right coronary artery Qualified Code: I21.11 - ST elevation (STEMI) myocardial infarction involving right coronary artery Plan: Patient is stable. We may transfer her to PCC/telemetry if needed. She is on appropriate medical therapy for her recent inferior CO. She is on Plavix , ASA, Crestor, ACEi, and BB. I would like to put her back on heparin or enoxaparin give the fact she just had a PBA of her RCA. I will put her on enoxaparin 1mg/kg SC q12. I discussed with her about the plan which is to transfer her to [facility] on Wednesday and schedule high risk PCI of her LM and RCA with surgical backup. Patient understands the risk of the PCI and was explained the reason why she is not a great surgical candidate due to her diffuse disease within her multiple LAD stens from proximal to mid/distal. I will also add nitropaste today and see if we can titrate her off of IV Nitroglycerin as well. Status: Resolved ICD Code: I21.3 (2) Hyperglycemia Status: Chronic ICD Code: R73.9 (3) Diabetes Qualifiers: Diabetes mellitus type: type 2 Diabetes mellitus complication status: with neurologic complications Diabetes mellitus complication detail: with polyneuropathy Diabetes mellitus retirement insulin use: with ferry terminal agent use Qualified Code: E11.42 - Type 2 diabetes mellitus with diabetic polyneuropathy Status: Chronic ICD Code: E11.9 Pain Evaluation: Adequate Pain Control Resuscitation Status: CPR: Attempt Resuscitation Time spent 30 minutes Kenneth Herrera MD Aug 22, 2016 09:57
[2016-08-22] MEDS: Nitroglycerin 2% 1 Gm Ointment TOPICAL SCH ×3 (10:38→22:05)
[2016-08-22 11:43] LABS: APPEARANCE,URINE HAZY (CLEAR,HAZY); COLOR,URINE YELLOW (YELLOW); OCCULT BLOOD,URINE TRACE (NEGATIVE); PH,URINE 5.5 (5.0-8.0); UROBILINOGEN,URINE NORMAL (NORMAL)
[2016-08-22 11:44] LABS: YEAST,URINE FEW (NONE SEEN)
--- NOTE | 2016-08-22 15:59 | PCM.PNMED ---
Subjective Date of Service Aug 22, 2016 Subjective 65 year old female with hx of DM2 on insulin and metformin and hx of [place] with multiple stent placed in 2009 who presented to the ED with 10/10, radiating, substernal chest pressure with difficulty breathing that began at 0400 this morning after patient woke up to prepare for her day. She does not have chest pain, dyspnea, palpitations, diaphoresis, nausea, or vomiting this morning. Exam Vital Signs Vital Sign - Last Date Time Temp Pulse Resp B/P Pulse Ox O2 Delivery O2 Flow Rate FiO2 08/22/16 11:41 36.6 86 20 125/62 97 Room Air 08/22/16 07:29 1.00 Intake and Output 08/21/16 08/21/16 08/22/16 Cumulative From/Thru 15:00 23:00 07:00 08/21/16 06:00 - 08/22/16 05:06 Intake Total 1058 ml 893 ml 1951 ml Output Total 950 ml 450 ml 1400 ml Balance 108 ml 443 ml 551 ml Intake Oral 300 ml 440 ml 740 ml IV Total 758 ml 453 ml 1211 ml Output Urine Total 950 ml 450 ml 1400 ml # Voids 2 2 # Bowel Movements 0 0 Exam gen: AOx3; no acute distress; laying flat HEENT: PERRLA, EOMI, membranes moist Cardio: RRR Resp: CTA with no rales, rhonchi, or wheezing Abd: Benign; normal bowel sounds; non-tender; incision site clean and bandages dry Ext: no edema; pulses intact psych: appropriate mood and affect neuro: sensation intact grossly IVs and Medications Medications Reviewed: Medications were reviewed in detail Lab and Diagnostics Result Diagram: 08/22/16 0310 08/22/16 0310 X-Rays, CTs and MRIs CXR IMPRESSION: No acute cardiopulmonary disease. Dictated by: Dank Goff RRA Interpreted: Nikko Ramirez MD on 08/21/2016 at 9: 21 Assessment & Plan 65 year old female with hx of [place] and DM2 on insulin presented to ED with substernal CP and inferior STEMI with significant and advance CAD on catheterization. Per Dr. Herrera's note, Dr. Vazquez is working on transfer for CABG. Diabetes type 2; present o admission; ongoing -Diabetic for 8 year on Metformin and 40 units Humulin N BID; normal BG < 180 -Initial BG > 550, HgbA1c 12.6% -Increased to Lantus 50mg HS and medium correctional -NPO Wednesday night due to possible transfer for CABG; will follow-up with cardio Inferior STEMI; present on admission; ongoing -Presented with substernal typical CP with cath identifying complete occlusion of the RCA and near occlusive of the LAD among others; No stents placed -Angioplasty performed and plan is to transfer her to [place] on Wednesday and schedule high risk PCI of her LM and RCA with surgical backup -Continue Plavix, ASA, Crestor, ACEi, and beta matt. -Enoxaparin 1mg/kg SC q12. Asthma, chronic; present on admission; ongoing -Pt has been refusing fluticasone and salmeterol inhalers and now listed as discontinued in her home medications. Therefore, held them both. -Continue albuterol nebulizers as needed Neuropathy; present on admisison, ongoing -No complaint of neuropathy at this point Disposition: Pt admitted to ICU following PCI with balloon angioplasty. Expected LOS is likely greater than 2 midnights pending transfer for recommended for CABG. Resuscitation Status: CPR: Attempt Resuscitation Attending Statement The patient was seen and examined together with Dr. Barnes on 08/22/16 and I have added additional information to the note above. Noreen Barnes DO Aug 22, 2016 15:59 Debbi Hurt DO Aug 22, 2016 18:17
[2016-08-22] MEDS ORDERED: Insulin GLARgine 100 Unit/mL Syringe SUBQ SCH (21:00)
[2016-08-23] VITALS (11 sets, daily range): BP systolic 119–148; BP diastolic 57–76; PULSE 76–96; RESP 15–20; O2SAT 94–100
[2016-08-23 03:21] LABS: BASOPHILS % (AUTO) 0.2 % (0-3); EOSINOPHILS % (AUTO) 0.9 % (0-5); MONOCYTES % (AUTO) 10.3 % (4-12); Mean Corpuscular Hemoglobin 28.7 pg (27.0-35.0); Mean Corpuscular Volume 85.4 fL (81-100); NEUTROPHILS % (AUTO) 49.2 % (40-74); Platelet Count 173 bil/L (150-400)
[2016-08-23] MEDS: Nitroglycerin 2% 1 Gm Ointment TOPICAL SCH ×3 (06:34→17:47)
[2016-08-23] MEDS: Insulin LISPRO 300 Unit/3 mL Inj SUBQ SCH ×4 (08:21→21:16)
--- NOTE | 2016-08-23 13:11 | PCM.PNMED ---
Subjective Date of Service Aug 23, 2016 Subjective 65 year old female with hx of DM2 on insulin and metformin and hx of NE with multiple stent placed in 2009 who presented to the ED with 10/10, radiating, substernal chest pressure with difficulty breathing that began at 0400 this morning after patient woke up to prepare for her day. Patient has no complaints. Sleeping well. Able to get up and take a shower. Denies all review of systems Exam Vital Signs Vital Sign - Last Date Time Temp Pulse Resp B/P Pulse Ox O2 Delivery O2 Flow Rate FiO2 08/23/16 12:00 37.1 84 17 143/57 99 Room Air 08/22/16 07:29 1.00 Intake and Output 08/22/16 08/22/16 08/23/16 Cumulative From/Thru 15:00 23:00 07:00 08/21/16 06:00 - 08/23/16 06:31 Intake Total 650 ml 236 ml 2837 ml Output Total 300 ml 800 ml 2500 ml Balance 350 ml -564 ml 337 ml Intake Oral 650 ml 236 ml 1626 ml IV Total 1211 ml Output Urine Total 300 ml 800 ml 2500 ml # Voids 1 3 # Bowel Movements 0 0 Exam gen: AOx3; no acute distress HEENT: PERRLA, EOMI, membranes moist Cardio: RRR Resp: Decreased breath sounds appear to be clear to auscultation Abd: Benign; normal bowel sounds; non-tender; incision site clean and bandages dry Ext: no edema; pulses intact psych: appropriate mood and affect neuro: sensation intact grossly IVs and Medications Medications Reviewed: Medications were reviewed in detail Lab and Diagnostics Result Diagram: 08/23/16 0255 08/23/16 0255 X-Rays, CTs and MRIs CXR IMPRESSION: No acute cardiopulmonary disease. Dictated by: Dank Goff RRA Interpreted: Nikko Ramirez MD on 08/21/2016 at 9: 21 Assessment & Plan 65 year old female with hx of NE and DM2 on insulin presented to ED with substernal CP and inferior STEMI with significant and advance CAD on catheterization. Per Dr. Herrera's note, Dr. Vazquez is working on transfer for CABG. Diabetes type 2; present o admission; ongoing -Diabetic for 8 year on Metformin and 40 units Humulin N BID; normal BG < 180 -Initial BG > 550, HgbA1c 12.6% -Lantus increased to 60mg HS with medium correctional and 3 units prandial insulin -NPO Wednesday night due to possible transfer for CABG; will follow-up with cardio Inferior STEMI; present on admission; ongoing -Presented with substernal typical CP with cath identifying complete occlusion of the RCA and near occlusive of the LAD among others; No stents placed -Angioplasty performed and plan is to transfer her to [place] on Wednesday and schedule high risk PCI of her LM and RCA with surgical backup -Continue Plavix, ASA, Crestor, ACEi, and beta matt. -Enoxaparin 1mg/kg SC q12. Hold evening dose pending transfer for CABG Asthma, chronic; present on admission; ongoing -Pt has been refusing fluticasone and salmeterol inhalers and now listed as discontinued in her home medications. Therefore, held them both. -Continue albuterol nebulizers as needed Neuropathy; present on admisison, ongoing -No complaint of neuropathy at this point Disposition: Expect transfer for CABG. Will coordinate with cardiology Pain Evaluation: Adequate Pain Control VTE Prophylaxis: Sub-Q Enoxaparin Resuscitation Status: CPR: Attempt Resuscitation Attending Statement The patient was seen and examined together with Dr. Stein on 08/23/2016 and I agree with the history, exam and plan as outlined in the note above. Mio Stein DO Aug 23, 2016 13:11 Debbi Hurt DO Aug 23, 2016 16:53
[2016-08-23] MEDS ORDERED: Glucose 40% Oral Gel 15 Gm Tube PO PRN (13:15)
[2016-08-23] MEDS ORDERED: Dextrose 10% 250 ML IV ONE (13:15)
[2016-08-23] MEDS: Insulin GLARgine 100 Unit/mL Syringe SUBQ SCH (21:15)
[2016-08-24] VITALS (9 sets, daily range): BP systolic 121–140; BP diastolic 67–80; PULSE 76–91; RESP 16–20; O2SAT 95–96
[2016-08-24] MEDS: Nitroglycerin 2% 1 Gm Ointment TOPICAL SCH ×5 (00:23→23:43)
[2016-08-24 03:26] LABS: BASOPHILS % (AUTO) 0.3 % (0-3); EOSINOPHILS % (AUTO) 1.6 % (0-5); MONOCYTES % (AUTO) 9.4 % (4-12); Mean Corpuscular Hemoglobin 28.5 pg (27.0-35.0); Mean Corpuscular Volume 84.5 fL (81-100); NEUTROPHILS % (AUTO) 52.1 % (40-74); Platelet Count 161 bil/L (150-400)
[2016-08-24 03:45] LABS: INR 0.98 ratio
[2016-08-24 05:04] LABS: Magnesium 1.6 mg/dL (1.6-2.6); Phosphorus 3.8 mg/dL (2.5-4.9)
[2016-08-24] MEDS: Insulin LISPRO 300 Unit/3 mL Inj SUBQ SCH ×4 (08:23→21:12)
[2016-08-24] MEDS ORDERED: Insulin LISPRO 300 Unit/3 mL Inj SUBQ ONE (09:35)
--- NOTE | 2016-08-24 16:44 | PCM.PNMED ---
Subjective Date of Service Aug 24, 2016 Subjective Patient doing well. No complaints. Review of systems negative. Patient pending transfer for CABG with Dr. Vazquez, at [facility]. He is coordinating the transfer Exam Vital Signs Vital Sign - Last Date Time Temp Pulse Resp B/P Pulse Ox O2 Delivery O2 Flow Rate FiO2 08/24/16 12:57 82 08/24/16 12:37 36.9 20 128/73 96 Room Air 08/22/16 07:29 1.00 Intake and Output 08/23/16 08/23/16 08/24/16 Cumulative From/Thru 15:00 23:00 07:00 08/21/16 06:00 - 08/24/16 06:52 Intake Total 960 ml 150 ml 3947 ml Output Total 1450 ml 3950 ml Balance 960 ml -1300 ml -3 ml Intake Oral 960 ml 150 ml 2736 ml IV Total 1211 ml Output Urine Total 1450 ml 3950 ml # Voids 4 3 10 # Bowel Movements 3 3 Exam gen: AOx3; no acute distress HEENT: PERRLA, EOMI, membranes moist Cardio: RRR Resp: Decreased breath sounds appear to be clear to auscultation Abd: Benign; normal bowel sounds; non-tender Ext: no edema; pulses intact psych: appropriate mood and affect neuro: sensation intact grossly IVs and Medications Medications Reviewed: Medications were reviewed in detail Lab and Diagnostics Result Diagram: 08/24/165 08/24/16 031 X-Rays, CTs and MRIs CXR IMPRESSION: No acute cardiopulmonary disease. Dictated by: Dank Goff RRA Interpreted: Nikko Ramirez MD on 08/21/2016 at 9: 21 Assessment & Plan 65 year old female with hx of SC and DM2 on insulin presented to ED with substernal CP and inferior STEMI with significant and advance CAD on catheterization. Per Dr. Herrera's note, Dr. Vazquez is working on transfer for CABG. Diabetes type 2; present o admission; ongoing -Diabetic for 8 year on Metformin and 40 units Humulin N BID; normal BG < 180 -Initial BG > 550, HgbA1c 12.6% -Lantus increased to 60mg HS with medium correctional and 3 units prandial insulin -Pt eating as we wait for word on transfer Inferior STEMI; present on admission; ongoing -Presented with substernal typical CP with cath identifying complete occlusion of the RCA and near occlusive of the LAD among others; No stents placed -Angioplasty performed and plan is to transfer her to [place] on Wednesday and schedule high risk PCI of her LM and RCA with surgical backup -Continue Plavix, ASA, Crestor, ACEi, and beta matt. -Restarting Lovenox Asthma, chronic; present on admission; ongoing -Pt has been refusing fluticasone and salmeterol inhalers and now listed as discontinued in her home medications. Therefore, held them both. -Continue albuterol nebulizers as needed Neuropathy; present on admisison, ongoing -No complaint of neuropathy at this point Disposition: Expect transfer for CABG. Pain Evaluation: Adequate Pain Control VTE Prophylaxis: Sub-Q Enoxaparin Resuscitation Status: CPR: Attempt Resuscitation Attending Statement The patient was seen and examined together with Dr. Stein on 08/24/2016 and I agree with the history, exam and plan as outlined in the note above. . Mio Stein DO Aug 24, 2016 16:43 Dg Harris MD Aug 25, 2016 07:33
--- NOTE | 2016-08-24 20:39 | PROG NOTE ---
[address] [address] PROGRESS NOTE PATIENT: CINDI SLAUGHTER : 1950 MR#: [id number] ADMIT: 08/21/2016 JOB ID: [id number] DATE: 08/24/2016 The patient was seen in followup. She is lady who came in with an acute inferior IA. She had balloon angioplasty of her RCA. Because she was found to have a tight left main lesion, I choose to do a balloon angioplasty and thereby not subject her to dual antiplatelet therapy. I spoke with Dr. Hinds who felt that her LAD and diagonal were not good vessels for bypass. He did not feel the SHAH would allow surgeons to skip it from diagonal to LAD and the LAD part of it was intramyocardial and the apical segment was no more than 2 cm. His recommendation was stenting of the left main. The first circumflex is a small nondominant vessel. Since she has been in the hospital, she has been pain free for the last 24 hours or greater. Her vitals are stable. Her lab data shows slight reduction in her hemoglobin to 11. Her troponin was 0.13 upon admission. No further troponins were done as far as I can tell, so it is hard to estimate her infarct size by enzymes but her echo showed preserved LV function with EF around 60-65% with basal inferoseptal hypokinesis, which is in keeping with a myocardial infarction. Today I had a lengthy discussion with the patient about her prognosis and her treatment options. I gave her the option for stenting. I also informed her that she can have it done at [facility] or [facility] if she so chooses. I explained the pros and cons of both. I also explained that I would probably be doing this with balloon pump support. She verbalized understanding and is going to think about it and talk to her family as well.
[2016-08-24] MEDS: Insulin GLARgine 100 Unit/mL Syringe SUBQ SCH (21:12)
[2016-08-25] VITALS (10 sets, daily range): BP systolic 100–162; BP diastolic 67–78; PULSE 73–90; RESP 15–18; O2SAT 96–99
[2016-08-25] MEDS: Nitroglycerin 2% 1 Gm Ointment TOPICAL SCH ×4 (05:22→23:42)
[2016-08-25 07:12] LABS: BASOPHILS % (AUTO) 0.3 % (0-3); EOSINOPHILS % (AUTO) 2.3 % (0-5); MONOCYTES % (AUTO) 9.1 % (4-12); Mean Corpuscular Hemoglobin 28.5 pg (27.0-35.0); Mean Corpuscular Volume 84.9 fL (81-100); NEUTROPHILS % (AUTO) 52.2 % (40-74); Platelet Count 174 bil/L (150-400)
[2016-08-25] MEDS: Insulin LISPRO 300 Unit/3 mL Inj SUBQ SCH ×4 (08:23→21:42)
--- NOTE | 2016-08-25 10:07 | PCM.PNMED ---
Subjective Date of Service Aug 25, 2016 Subjective This is a 65 year old female with history significant for multiple past AL's who presented with STEMI. Cath showed significant left main disease, diffuse in -stent stenosis in LAD stents, total distal RCA occulsion. S/P balloon angioplasty. Non amenable to CABG. Today, patient will go back to energy systems laboratory director for possible stenting. Patient doing well. No complaints. Review of systems negative. Exam Vital Signs Vital Sign - Last Date Time Temp Pulse Resp B/P Pulse Ox O2 Delivery O2 Flow Rate FiO2 08/25/16 08:00 Supplement Oxygen 08/25/16 08:00 36.7 85 16 135/75 96 08/22/16 07:29 1.00 Intake and Output 08/24/16 08/24/16 08/25/16 Cumulative From/Thru 15:00 23:00 07:00 08/21/16 06:00 - 08/25/16 05:51 Intake Total 360 ml 450 ml 4757 ml Output Total 1025 ml 550 ml 5525 ml Balance -665 ml -100 ml -768 ml Intake Oral 360 ml 450 ml 3546 ml IV Total 1211 ml Output Urine Total 1025 ml 550 ml 5525 ml # Voids 10 # Bowel Movements 3 Exam gen: AOx3; no acute distress HEENT: PERRLA, EOMI, membranes moist Cardio: RRR Resp: Decreased breath sounds appear to be clear to auscultation Abd: Benign; normal bowel sounds; non-tender Ext: no edema; pulses intact psych: appropriate mood and affect neuro: sensation intact grossly IVs and Medications Medications Reviewed: Medications were reviewed in detail Lab and Diagnostics Result Diagram: 08/25/1645 08/25/16 0645 X-Rays, CTs and MRIs CXR IMPRESSION: No acute cardiopulmonary disease. Dictated by: Dank Goff RRA Interpreted: Nikko Ramirez MD on 08/21/2016 at 9: 21 Assessment & Plan 65 year old female with hx of AL and DM2 on insulin presented to ED with substernal CP and inferior STEMI with significant and advancement of CAD. Not amenable to CABG. Diabetes type 2; present o admission; ongoing -Diabetic for 8 year on Metformin and 40 units Humulin N BID; normal BG < 180 -HgbA1c 12.6% -Will increase lantus to 65 units. Will increase to high dose correctional and 3 units prandial insulin -Pt eating as we wait for word on transfer -Constant carb (45g) diet. Inferior STEMI; present on admission; ongoing -Presented with substernal typical CP with cath identifying complete occlusion of the RCA and near occlusive of the LAD among others; No stents placed -Angioplasty performed. Not amenable to CABG. Patient will go back to energy systems laboratory director today for probable stent placement. -Continue Plavix, ASA, Crestor, ACEi, and beta matt. -On Lovenox. Asthma, chronic; present on admission; ongoing -Pt has been refusing fluticasone and salmeterol inhalers and now listed as discontinued in her home medications. Therefore, held them both. -Continue albuterol nebulizers as needed Neuropathy; present on admisison, ongoing -No complaint of neuropathy at this point Disposition: Expect transfer for CABG. Pain Evaluation: Adequate Pain Control VTE Prophylaxis: Sub-Q Enoxaparin Resuscitation Status: CPR: Attempt Resuscitation Attending Statement The patient was seen and examined together with Dr. Cordero on 08/25/2016 and I agree with the history, exam and plan as outlined in the note above. . Carlos Cordero DO Aug 25, 2016 10:07 Dg Harris MD Aug 26, 2016 17:50
[2016-08-25] MEDS ORDERED: Glucose 40% Oral Gel 15 Gm Tube PO PRN (13:50)
[2016-08-25] MEDS: Insulin GLARgine 100 Unit/mL Syringe SUBQ SCH (21:41)
[2016-08-26] VITALS (7 sets, daily range): BP systolic 109–137; BP diastolic 60–71; PULSE 78–96; RESP 15–18; O2SAT 96–98
[2016-08-26 03:14] LABS: BASOPHILS % (AUTO) 0.3 % (0-3); EOSINOPHILS % (AUTO) 2.5 % (0-5); MONOCYTES % (AUTO) 10.3 % (4-12); Mean Corpuscular Hemoglobin 28.1 pg (27.0-35.0); Mean Corpuscular Volume 85.3 fL (81-100); NEUTROPHILS % (AUTO) 44.8 % (40-74); Platelet Count 179 bil/L (150-400)
[2016-08-26] MEDS: Nitroglycerin 2% 1 Gm Ointment TOPICAL SCH ×4 (05:47→23:50)
[2016-08-26] MEDS: Insulin LISPRO 300 Unit/3 mL Inj SUBQ SCH ×3 (08:00→22:11)
--- NOTE | 2016-08-26 11:30 | PROG NOTE ---
[address] [address] PROGRESS NOTE PATIENT: CINDI SLAUGHTER : 1950 MR#: [id number] ADMIT: 08/21/2016 JOB ID: [id number] DATE: 08/25/2016 and 08/26/2016 SUBJECTIVE: No chest discomfort. No shortness of breath. Status post balloon angioplasty for RCA following an inferior infarct. Tentatively, she will be scheduled for left main stenting today. OBJECTIVE: On examination, vitals stable. Pulse 80, blood pressure 135/75. Neck: Supple. No JVD. Chest: Clear. Heart sounds: S1, S2, regular. Abdomen: Soft. Extremities: Negative for CCE. Femoral pulses 2+ bilaterally. Popliteals nonpalpable. Distal pulses are dopplerable except for left dorsalis pedis, which is not. 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 Lab data was reviewed. Hemoglobin is 11. Creatinine is 0.69. ASSESSMENT AND PLAN: This lady has a diffusely diseased left anterior descending. She has prior stents, which show in-stent restenosis. Her circumflex is nondominant. Yesterday, I had a discussion with Dr. Dawson Faria. He reviewed the films, and his initial impression was that the patient is not well suited for bypasses. He did not feel he would be able to do adequate grafting to the distal left anterior descending. I discussed all of this with the patient. She elected to undergo left main stenting at [facility]. She did not wish to go to [facility]. Later last night, I got another call from Dr. Faria, and he reviewed the films for a second time and felt that a hybrid approach might be safer for the patient where he can graft the diagonal and ramus, and he was not sure about the right coronary. If he was unable to bypass the right, then I can stent it. At the same time I could also do a percutaneous intervention on her left anterior descending. I presented all of this information to the patient. She wants to think about whether she wants to have a hybrid procedure or whether she wants to have stenting. A total of an hour and a half was spent on organizing the patient's care. This dictation summarizes yesterday's and today's care. An hour was spent yesterday and 30 minutes today with the patient in organizing her care.
--- NOTE | 2016-08-26 12:15 | PCM.PNMED ---
Subjective Date of Service Aug 26, 2016 Subjective This is a 65 year old female with history significant for multiple past CA's who presented with STEMI. Cath showed significant left main disease, diffuse in -stent stenosis in LAD stents, total distal RCA occulsion. S/P balloon angioplasty. Non amenable to CABG. Today, patient will go back to cath lab radiology technician for possible stenting. Patient doing well. No complaints. Review of systems negative. Exam Vital Signs Vital Sign - Last Date Time Temp Pulse Resp B/P Pulse Ox O2 Delivery O2 Flow Rate FiO2 08/26/16 08:34 36.9 89 18 133/67 96 Room Air 08/22/16 07:29 1.00 Intake and Output 08/25/16 08/25/16 08/26/16 Cumulative From/Thru 15:00 23:00 07:00 08/21/16 06:00 - 08/26/16 06:45 Intake Total 1056 ml 400 ml 6213 ml Output Total 850 ml 875 ml 7250 ml Balance 206 ml -475 ml -1037 ml Intake Oral 1056 ml 400 ml 5002 ml IV Total 1211 ml Output Urine Total 850 ml 875 ml 7250 ml # Voids 10 # Bowel Movements 3 Exam gen: AOx3; no acute distress HEENT: PERRLA, EOMI, membranes moist Cardio: RRR Resp: Decreased breath sounds appear to be clear to auscultation Abd: Benign; normal bowel sounds; non-tender Ext: no edema; pulses intact psych: appropriate mood and affect neuro: sensation intact grossly Lab and Diagnostics Result Diagram: 08/26/16 0245 08/26/16 024 X-Rays, CTs and MRIs CXR IMPRESSION: No acute cardiopulmonary disease. Dictated by: Dank Goff RRA Interpreted: Nikko Ramirez MD on 08/21/2016 at 9: 21 Assessment & Plan 65 year old female with hx of CA and DM2 on insulin presented to ED with substernal CP and inferior STEMI with significant and advancement of CAD. Not amenable to CABG. Diabetes type 2; present o admission; ongoing -Diabetic for 8 year on Metformin and 40 units Humulin N BID; normal BG < 180 -HgbA1c 12.6% -Lantus 65 units. Hiigh dose correctional and 9 units prandial insulin. -Constant carb (45g) diet. Inferior STEMI; present on admission; ongoing -Presented with substernal typical CP with cath identifying complete occlusion of the RCA and near occlusive of the LAD among others; No stents placed -Angioplasty performed. Not amenable to CABG. -Patient is planning for transfer to [facility] tomorrow for hybrid procedure. -Continue Plavix, ASA, Crestor, ACEi, and beta matt. -On Lovenox. Asthma, chronic; present on admission; ongoing -Pt has been refusing fluticasone and salmeterol inhalers and now listed as discontinued in her home medications. Therefore, held them both. -Continue albuterol nebulizers as needed Neuropathy; present on admisison, ongoing -No complaint of neuropathy at this point Disposition: Expect transfer for hybrid procedure. Pain Evaluation: Adequate Pain Control VTE Prophylaxis: Sub-Q Enoxaparin Resuscitation Status: CPR: Attempt Resuscitation Attending Statement The patient was seen and examined together with Dr. Cordero on 08/26/2016 and I agree with the history, exam and plan as outlined in the note above. . Carlos Cordero DO Aug 26, 2016 09:36 Dg Harris MD Aug 26, 2016 17:51
[2016-08-26] MEDS ORDERED: Glucose 40% Oral Gel 15 Gm Tube PO PRN ×2 (12:20→22:45)
[2016-08-26] MEDS: Insulin GLARgine 100 Unit/mL Syringe SUBQ SCH (22:12)
[2016-08-27] VITALS (8 sets, daily range): BP systolic 116–150; BP diastolic 65–73; PULSE 79–89; RESP 15–20; O2SAT 96–100
[2016-08-27] MEDS: Nitroglycerin 2% 1 Gm Ointment TOPICAL SCH ×4 (05:48→23:57)
[2016-08-27] MEDS ORDERED: Insulin LISPRO 300 Unit/3 mL Inj SUBQ SCH (08:00)
[2016-08-27] MEDS ORDERED: Glucose 40% Oral Gel 15 Gm Tube PO PRN (11:50)
--- NOTE | 2016-08-27 11:51 | PCM.PNMED ---
Subjective Date of Service Aug 27, 2016 Subjective This is a 65 year old female with history significant for multiple past NH's who presented with STEMI. Cath showed significant left main disease, diffuse in -stent stenosis in LAD stents, total distal RCA occulsion. S/P balloon angioplasty. Non amenable to CABG. Transfer pending to [facility]. Patient doing well. No complaints. Review of systems negative. Exam Vital Signs Vital Sign - Last Date Time Temp Pulse Resp B/P Pulse Ox O2 Delivery O2 Flow Rate FiO2 08/27/16 11:13 36.9 80 16 116/65 98 Room Air 08/22/16 07:29 1.00 Intake and Output 08/26/16 08/26/16 08/27/16 Cumulative From/Thru 15:00 23:00 07:00 08/21/16 06:00 - 08/27/16 05:10 Intake Total 1080 ml 300 ml 7593 ml Output Total 1050 ml 700 ml 9000 ml Balance 30 ml -400 ml -1407 ml Intake Oral 1080 ml 300 ml 6382 ml IV Total 0 ml 1211 ml Output Urine Total 1050 ml 700 ml 9000 ml # Voids 10 # Bowel Movements 0 3 Exam gen: AOx3; no acute distress HEENT: PERRLA, EOMI, membranes moist Cardio: RRR Resp: Decreased breath sounds appear to be clear to auscultation Abd: Benign; normal bowel sounds; non-tender Ext: no edema; pulses intact psych: appropriate mood and affect neuro: sensation intact grossly IVs and Medications Medications Reviewed: Medications were reviewed in detail Lab and Diagnostics Result Diagram: 08/26/165 08/26/16 0245 X-Rays, CTs and MRIs CXR IMPRESSION: No acute cardiopulmonary disease. Dictated by: Dank Goff RRA Interpreted: Nikko Ramirez MD on 08/21/2016 at 9: 21 Assessment & Plan 65 year old female with hx of NH and DM2 on insulin presented to ED with substernal CP and inferior STEMI with significant and advancement of CAD. Not amenable to CABG. Diabetes type 2; present o admission; ongoing -Diabetic for 8 year on Metformin and 40 units Humulin N BID; normal BG < 180 -HgbA1c 12.6% -Lantus 65 units. Hiigh dose correctional and 16 units prandial insulin. -Constant carb (45g) diet. Inferior STEMI; present on admission; ongoing -Presented with substernal typical CP with cath identifying complete occlusion of the RCA and near occlusive of the LAD among others; No stents placed -Angioplasty performed. Not amenable to CABG. -Patient is planning for transfer to [facility] at 7:00am on 08/28 for hybrid procedure. -Continue Plavix, ASA, Crestor, ACEi, and beta matt. -On Lovenox. Asthma, chronic; present on admission; ongoing -Pt has been refusing fluticasone and salmeterol inhalers and now listed as discontinued in her home medications. Therefore, held them both. -Continue albuterol nebulizers as needed Neuropathy; present on admisison, ongoing -No complaint of neuropathy at this point Disposition: Expect transfer for hybrid procedure. Pain Evaluation: Adequate Pain Control VTE Prophylaxis: Sub-Q Enoxaparin Resuscitation Status: CPR: Attempt Resuscitation Attending Statement The patient was seen and examined together with Dr. Cordero on 08/27/2016 and I agree with the history, exam and plan as outlined in the note above. . Carlos Cordero DO Aug 27, 2016 11:50 Dg Harris MD Aug 28, 2016 07:10
[2016-08-27] MEDS: Insulin LISPRO 300 Unit/3 mL Inj SUBQ SCH ×3 (12:42→21:47)
[2016-08-27] MEDS: Insulin GLARgine 100 Unit/mL Syringe SUBQ SCH (21:46)
[2016-08-28 00:44] VITALS: BP 124/68; PULSE 84; RESP 16; O2SAT 94
[2016-08-28 04:05] VITALS: PULSE 88
[2016-08-28 04:23] VITALS: BP 124/80; PULSE 85; RESP 16; O2SAT 96
[2016-08-28] MEDS: Nitroglycerin 2% 1 Gm Ointment TOPICAL SCH (06:01)
--- NOTE | 2016-08-28 07:38 | DI95 ---
[address] [address] INTERVENTIONAL CARDIAC CATHETERIZATION PATIENT: CINDI SLAUGHTER : 1950 MR#: [id number] ADMIT: 08/21/2016 JOB ID: [id number] DATE: 08/21/2016 PROCEDURE: 1. Selective right and left coronary angiography. 2. Left heart catheterization. 3. Percutaneous intervention on the right coronary artery. INDICATIONS: Acute myocardial infarction. PROCEDURAL DETAILS: The reader and the coders are referred to the procedure log briefly. It was done via right femoral approach using a 6-[place] system. ANGIOGRAPHIC FINDINGS: 1. Left main has a tight lesion distally. This lesion extends both into the circumflex and the LAD. It is about 80% in severity. 2. LAD: The LAD is a moderate caliber vessel. It is stented proximally. It has extensive area of stenting in the mid segment as well. There is moderate in-stent restenoses in the distal stent, and some of the restenotic process appears to extend into the ostial LAD and the left main as well. 3. Circumflex is nondominant and it is a small vessel. The first obtuse marginal branch vessel has a tubular 40% to 60% stenosis in its proximal portion. The ongoing circumflex has a 70% to 80% lesion. This is a small caliber vessel. The very distal right is seen via intracoronary collaterals. 4. Right coronary artery is a large caliber, dominant vessel. It is totally occluded distally. 5. Left heart catheterization revealed an LVEDP of 16. There was no gradient upon pullback. Mid to inferobasal hypokinesis was noted. Mild apical hypokinesis is also noted. Ejection fraction overall is preserved. 6. RCA intervention: We then did an intervention on the RCA. A Run-through wire was used to cross this lesion. Following that, balloon angioplasty was performed. There was less than 30% residual following balloon angioplasty. 7. This lesion was deliberately not stented in order to plan for the patient's further revascularization. ADDITIONAL INFORMATION: The patient was presented to two surgeons. Both of them agreed that she is not a good candidate for bypass surgery. Her LAD is not truly amenable to good quality revascularization. Finally, it was decided to do a hybrid procedure with Dr. Dawson Faria. We will try to bypass the diagonal and possibly the ramus and the right coronary artery and if she requires residual revascularization, that will be done percutaneously.
--- NOTE | 2016-09-03 14:57 | PCM.DC.MED ---
Discharge Summary Date of Service Sep 03, 2016 Dates of Hospitalization Date of Hospital Admission Aug 21, 2016 at 06:56 Date of Discharge: Aug 28, 2016 Providers: Admitting Physician: Panda Vazquez MD Primary Care Physician: Ga Sullivan MD Attending Physician: Debbi Hurt DO Diagnosis at Time of Discharge Diagnosis at Time of Discharge Diabetes type 2 Inferior STEMI Asthma, chronic Neuropathy Procedures XRay, CTs & MRIs CXR IMPRESSION: No acute cardiopulmonary disease. Dictated by: Dank Goff RR Interpreted: Nikko Ramirez MD on 08/21/2016 at 9: 21 Cardiac Echo Impression Echocardiogram on 08/21/2016: Interpretation Summary There is moderate concentric left ventricular hypertrophy. Left ventricular systolic function is normal. The ejection fraction is estimated to be 60-65%. LVEF has slightly There is basal inferoseptal wall hypokinesis. There is basal inferior wall hypokinesis. LV wall motion abnormalities are new since 2009 study. The right ventricle is normal in size and function. Pulmonary artery pressures cannot be estimated because of the lack of a measurable TR jet velocity. Both atria are normal in size. There is mild mitral regurgitation. There is no other significant valvular heart disease. The aortic root is normal size. Read by Kenneth Herrera on 08/21/2016 01:17 Other Diagnostics Cardiac cath on 08/28/2016: PROCEDURAL DETAILS: The reader and the coders are referred to the procedure log briefly. It was done via right femoral approach using a 6-[place] system. ANGIOGRAPHIC FINDINGS: 1. Left main has a tight lesion distally. This lesion extends both into the circumflex and the LAD. It is about 80% in severity. 2. LAD: The LAD is a moderate caliber vessel. It is stented proximally. It has extensive area of stenting in the mid segment as well. There is moderate in-stent restenoses in the distal stent, and some of the restenotic process appears to extend into the ostial LAD and the left main as well. 3. Circumflex is nondominant and it is a small vessel. The first obtuse marginal branch vessel has a tubular 40% to 60% stenosis in its proximal portion. The ongoing circumflex has a 70% to 80% lesion. This is a small caliber vessel. The very distal right is seen via intracoronary collaterals. 4. Right coronary artery is a large caliber, dominant vessel. It is totally occluded distally. 5. Left heart catheterization revealed an LVEDP of 16. There was no gradient upon pullback. Mid to inferobasal hypokinesis was noted. Mild apical hypokinesis is also noted. Ejection fraction overall is preserved. 6. RCA intervention: We then did an intervention on the RCA. A Run-through wire was used to cross this lesion. Following that, balloon angioplasty was performed. There was less than 30% residual following balloon angioplasty. 7. This lesion was deliberately not stented in order to plan for the patient's further revascularization. ADDITIONAL INFORMATION: The patient was presented to two surgeons. Both of them agreed that she is not a good candidate for bypass surgery. Her LAD is not truly amenable to good quality revascularization. Finally, it was decided to do a hybrid procedure with Dr. Dawson Faria. We will try to bypass the diagonal and possibly the ramus and the right coronary artery and if she requires residual revascularization, that will be done percutaneously. Performed by Dr. Vazquez. Brief History This is a 65-year-old female with history of diabetes and multiple stents with history of multiple myocardial infarctions. The patient started having significant and typical chest pressure that was a 10 out of 10 the day before admit. She denied any nausea, shortness of breath, PND, or orthopnea. The pain radiated to both of her arms and was exacerbated by inspiration and relieved by sitting up. EKG showed inferior STEMI and the patient was taken to the catheterization laboratory immediately and was found to have significant left main disease and diffuse in-stent restenosis of her LAD stents. Her distal RCA was totally occluded. Balloon angioplasty was performed without stenting in case the patient was considered to be a candidate for coronary artery bypass grafting because of her left main disease. Hospital Course 65 year old female with hx of CO and DM2 on insulin presented to ED with substernal CP and inferior STEMI with significant and advancement of CAD. Not amenable to CABG. Patient was symptom free for the majority of her hospital stay awaiting transfer to [facility]. Her blood glucose levels were difficult to control and we increased her Lantus and prandial insulin during her stay. Diabetes type 2; present o admission; ongoing -HgbA1c 12.6% -At time of discharge patient was on: Lantus 65 units, hiigh dose correctional, and 16 units prandial insulin. -Constant carb (45g) diet was provided while in the hospital. Inferior STEMI; present on admission; ongoing -Presented with substernal typical CP with cath identifying complete occlusion of the RCA and near occlusive of the LAD among others; No stents placed -Angioplasty performed. Not amenable to CABG. -Patient was continued on Plavix, ASA, Crestor, ACEi, and beta matt. Plavix was held before discharge due to pending procedure. -Patient remained on Lovenox throughout hospital stay. -Patient discharged to [facility]. Asthma, chronic; present on admission; ongoing -Albuterol nebulizer was provided as needed. Neuropathy; present on admisison, ongoing -No complaint of neuropathy throughout hospital stay. Exam Vital Signs (Last) Date Time Temp Pulse Resp B/P Pulse Ox O2 Delivery O2 Flow Rate FiO2 08/28/16 04:23 37.1 85 16 124/80 96 Room Air Exam Patient was transferred morning of 08/28/2016 by cardiology before resident or attending physician could see patient. Test 08/21/16 06:41 08/21/16 12:30 08/22/16 11:11 08/24/16 03:15 Hemoglobin A1c 12.6% (4.8-5.6) Troponin T 0.013ug/L (0.0-0.011) Activated Partial Thromboplast Time 28.5sec (22.8-33.0) Urine Color Yellow (YELLOW) Urine Appearance Hazy (CLEAR,HAZY) Urine pH 5.5 (5.0-8.0) Urine Specific [place] 1.025 (1.003-1.035) Urine Protein Negativemg/dL (NEG,TRACE) Urine Glucose (UA) >1000mg/dL (NEGATIVE) Urine Ketones Negativemg/dL (NEGATIVE) Urine Occult Blood Trace (NEGATIVE) Urine Nitrite Negative (NEGATIVE) Urine Bilirubin Negative (NEGATIVE) Urine Urobilinogen Normalmg/dL (NORMAL) Urine Leukocyte Esterase Trace (NEGATIVE) Urine RBC 0-2/hpf (0-2) Urine WBC 11-50/hpf (0-5) Urine Epithelial Cells Few/hpf (NONE-MOD) Urine Crystals None seen (NONE SEEN) Urine Bacteria Few/hpf (NONE-FEW) Urine Hyaline Casts None/lpf (NONE) Urine Granular Casts None seen (NONE SEEN) Urine Waxy Casts None seen (NONE SEEN) Urine Red Blood Cell Casts None seen (NONE SEEN) Urine White Blood Cell Casts None seen (NONE SEEN) Urine Mucus None seen (None Seen) Urine Trichomonas None seen (NONE SEEN) Urine Yeast Few (NONE SEEN) Urinalysis Comment None Urine Culture Reflexed Indicated Prothrombin Time 10.5sec (8.1-12.5) Prothromb Time International Ratio 0.98ratio Phosphorus Level 3.8mg/dL (2.5-4.9) Magnesium Level 1.6mg/dL (1.6-2.6) Prealbumin 14mg/dL (20-40) Test 08/26/16 02:45 White Blood Count 7.3th/mm3 (3.8-10.1) Red Blood Count 4.02mil/mm3 (3.90-5.20) Hemoglobin 11.3g/dL (12.0-15.6) Hematocrit 34.3% (35.0-46.0) Mean Corpuscular Volume 85.3fL (81-100) Mean Corpuscular Hemoglobin 28.1pg (27.0-35.0) Mean Corpuscular Hemoglobin Concent 32.9% (32.0-37.0) Red Cell Distribution Width 14.2% (12.3-15.4) Platelet Count 179bil/L (150-400) Neutrophils (%) (Auto) 44.8% (40-74) Lymphocytes (%) (Auto) 41.4% (14-46) Monocytes (%) (Auto) 10.3% (4-12) Eosinophils (%) (Auto) 2.5% (0-5) Basophils (%) (Auto) 0.3% (0-3) Sodium Level 137mEq/L (134-144) Potassium Level 4.1mEq/L (3.5-5.2) Chloride Level 101mEq/L (97-108) Carbon Dioxide Level 22mmol/L (18-29) Blood Urea Nitrogen 16mg/dL (8-27) Creatinine 0.69mg/dL (0.57-1.00) Estimat Glomerular Filtration Rate 122mL/min (>59) Glucose Level 203mg/dL (60-99) Calcium Level 9.3mg/dL (8.5-10.1) Total Bilirubin 0.2mg/dL (0.0-1.2) Aspartate Amino Transf (AST/SGOT) 21U/L (0-50) Alanine Aminotransferase (ALT/SGPT) 23U/L (0-32) Alkaline Phosphatase 126U/L (25-165) Total Protein 6.1g/dL (6.4-8.4) Albumin 3.2g/dL (3.4-5.0) Discharge Medications Discharge Medications Aspirin (Aspirin) 81 Mg Tablet 81 MG PO DAILY (Reported) Cholecalciferol (Vitamin D3) (Vitamin D3) 5,000 Unit Capsule 5,000 UNIT PO DAILY (Reported) Clopidogrel (Clopidogrel) 75 Mg Tablet 75 MG PO DAILY (Reported) Insulin Lispro (HumaLOG U100 Insulin Cartridge Refill) 100 Unit/1 Ml Cartridge 40 UNIT SUBQ BID (Reported) Blood Sugar Lispro Correction <151 0 units 151-175 1 unit 176-200 2 units 201-225 3 units 226-250 4 units 251-275 5 units 276-300 6 units 301-325 7 units 326-350 8 units 351-375 9 units 376-400 10 units >400 12 units Check blood sugars before meals and at bedtime. Use correction factor only before meals. Lisinopril (Lisinopril) 20 Mg Tablet 20 MG PO BID (Reported) Metformin (Glucophage) 1,000 Mg Tablet 1,000 MG PO BID (Reported) Metoprolol Tartrate (Metoprolol Tartrate) 50 Mg Tablet 50 MG PO BID (Reported) [place]-3/Dha/Epa/Fish Oil (Fish Oil 1,000 mg Softgel) 1 Each Capsule 2 CAP PO DAILY (Reported) As needed Albuterol HFA (Proair HFA) 8.5 Gm Hfa.aer.ad 2 PUFFS INHALATION Q4H PRN PRN For Shortness of Breath (Reported) Albuterol Neb Soln (Albuterol Neb Soln) 0.63 Mg/3 Ml Vial.neb 0.63 MG INHALATION Q4H PRN PRN For Shortness of Breath (Reported) Nitroglycerin SL (Nitrostat) 0.4 Mg Tab.subl 0.4 MG SL Q5MIN PRN PRN For Chest Pain (Reported) Time spent 30 minutes Attending Statement The patient was discharged on 08/27/16 and transferred to another hospital by cardiology in order to have her cardiology procedure. Patient was not seen by myself nor by any of my resident prior to transfer. We were consulted by cardiology in order to manage the patient's elevated blood glucose levels. copies to: Ga Sullivan MD; Panda Vazquez MD, Christopher DO Sep 03, 2016 14:57 Debbi Hurt DO Sep 03, 2016 16:41
== END 2016-08-28 06:38 | disposition short-term general hospital (02) | DRG 251 ==
LOC: SED 05:56 → CCU 06:56 → PCC 08-22 10:51
PROVIDERS: ADMIT Internal Medicine Cardiovascular Disease; ATTEND Neuromusculoskeletal Medicine & OMM
PROC: 02703ZZ Dilation of Coronary Artery, One Artery, Percutaneous Approach (ICD-10-PCS; principal; 2016-08-21)
PROC: 4A023N7 Measurement of Cardiac Sampling and Pressure, Left Heart, Percutaneous Approach (ICD-10-PCS; 2016-08-21)
PROC: B2111ZZ Fluoroscopy of Multiple Coronary Arteries using Low Osmolar Contrast (ICD-10-PCS; 2016-08-21)
PROC: B20 Imaging, Heart, Plain Radiography (ICD-10-PCS; 2016-08-21)
DX: I21.11 ST elevation (STEMI) myocardial infarction involving right coronary artery (principal); T82.855A Stenosis of coronary artery stent, initial encounter; E11.65 Type 2 diabetes mellitus with hyperglycemia; Z79.4 Long term (current) use of insulin; E78.5 Hyperlipidemia, unspecified; Z87.891 Personal history of nicotine dependence; J45.909 Unspecified asthma, uncomplicated; E11.42 Type 2 diabetes mellitus with diabetic polyneuropathy; I25.10 Atherosclerotic heart disease of native coronary artery without angina pectoris